=== PATIENT | female | born 1935 | race Caucasian/White ===

== ENCOUNTER 2018-12-25 14:05 | Emergency (ER) | payer MEDICARE ==
[~2018-12-25] VITALS: Ht 157.5 cm; Wt 48.1 kg
[~2018-12-25 14:05] MED LIST: ALPR0.5T6 PO; ASPI-482 PO; ESOM40CA PO; GABA-585 PO; HYDR-2155 PO; HYDR12.58 PO; METO-247 PO; METO100T7 PO; SIMV80TA17 PO; TRIM100T13 PO; VIT1TABL34 PO; [UNRECOGNIZED DRUG - OTHER] EACH EAR
[2018-12-25] MEDS ORDERED: IV NORMAL SALINE 1,000ML 1,000 ML IV ONE (14:30)
[2018-12-25 14:54] LABS: BASO # 0.1 x10^3/uL (0.0-0.2); BASO % 1 % (0-3); EOS # 0.1 x10^3/uL (0.0-0.7); EOS % 2 % (0-3); HEMATOCRIT 38.9 % (36.0-47.0); HEMOGLOBIN 12.7 g/dL (12.0-15.5); LYMPH # 2.7 x10^3/uL (1.0-4.8); LYMPH % 31 % (24-48); MEAN CORPUSCULAR HEMOGLOBIN 31 pg (25-35); MEAN CORPUSCULAR HGB CONC 33 g/dL (31-37); MEAN CORPUSCULAR VOLUME 93 fL (79-100); MONO # 0.7 x10^3/uL (0.0-1.1); MONO % 8 % (0-9); NEUT % 58 % (31-73); PLATELET COUNT 343 x10^3/uL (140-400); RED BLOOD COUNT 4.17 x10^6/uL (3.50-5.40); RED CELL DISTRIBUTION WIDTH 14.5 % (11.5-14.5); WHITE BLOOD COUNT 8.6 x10^3/uL (4.0-11.0)
[2018-12-25 15:18] LABS: ALBUMIN 3.4 g/dL (3.4-5.0); ALBUMIN/GLOBULIN RATIO 0.8 (1.0-1.7); CREATININE 1.4 mg/dL (0.6-1.0); GFR 35.8; POTASSIUM 5.1 mmol/L (3.5-5.1); TOTAL BILIRUBIN 0.2 mg/dL (0.2-1.0); TOTAL PROTEIN 7.6 g/dL (6.4-8.2)
[2018-12-25 15:42] LABS: BILIRUBIN,URINE NEG (NEG); CLARITY,URINE CLEAR; COLOR,URINE YELLOW; GLUCOSE,URINE NEG (NEG); NITRITE,URINE NEG (NEG); UROBILINOGEN,URINE 0.2 mg/dL (0.2 mg/dL)
[2018-12-25 15:43] LABS: BACTERIA,URINE 0 /HPF (0-FEW); SQUAMOUS EPITHELIAL CELL,UR MANY /LPF
[2018-12-25 15:52] VITALS: BP 127/68
--- NOTE | 2018-12-25 15:52 | RAD ---
Examination: CT ABDOMEN PELVIS WO CONTRAST History: Diarrhea, abdominal pain Comparison/Correlation: 08/24/2014 CT chest and abdomen with contrast Findings: Axial images of the abdomen and pelvis were obtained without contrast. Sagittal and coronal reformatted images were provided. Mitral annular calcifications present. Significant calcification of the left anterior descending coronary artery noted. Linear atelectasis or scarring along the lateral right lung base noted. Minimal loculated pericardial effusion is suggested about the right ventricle. Cholecystectomy noted. Unenhanced liver is unremarkable. Calcified granulomatous involving the spleen. Adrenal glands are unremarkable. Right extrarenal pelvis is evident. No radiopaque collecting system calculi or definite collecting system obstruction. Fluid is noted to distend the colon. No extraluminal gas. Fluid is also present within nondistended small bowel. Diverticulosis of the colon is notable. No inflammatory findings about the cecum. Urinary bladder is moderately distended. No enlarged abdominal or pelvic lymph nodes. Nonspecific left upper pelvic sidewall nonenlarged lymph nodes or other soft tissue density suggested but stable pulmonary correlation with previous CT exam. T11 kyphoplasty evident. Disc space narrowing from L2 to L4 is moderate with vacuum phenomenon. Significant calcific involvement of the abdominal aorta and iliac arteries noted. Levo convexity of the lower spine noted. Impression: Diverticulosis of the colon. Fluid within the colon which may correspond to reported diarrhea. No definite inflammatory findings. PQRS Compliance Statement: One or more of the following individualized dose reduction techniques were utilized for this examination: 1. Automated exposure control 2. Adjustment of the mA and/or kV according to patient size 3. Use of iterative reconstruction technique Electronically signed by: Vinayak Ayala MD (12/25/2018 3:49 PM) [id number]
--- NOTE | 2018-12-25 16:13 | PHYS DOC ---
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 The patient tells me she has had chronic diarrhea for couple months. She's had a lifelong history of diarrhea. Her physician was concerned that she appeared dehydrated and that her normal pain might be something more significant. Patient scrubbed the pain is an intermittent generalized cramping. It is mild in intensity. She has not had fever or chills. No recent medication changes. Review of Systems Review of Systems Constitutional: Denies fever or chills [] Eyes: Denies change in visual acuity, redness, or eye pain [] HENT: Denies nasal congestion or sore throat [] Respiratory: Denies cough or shortness of breath [] Cardiovascular: No additional information not addressed in HPI [] GI: Generalized abdominal pain, diarrhea [] : Denies dysuria or hematuria [] Musculoskeletal: Denies back pain or joint pain [] Integument: Denies rash or skin lesions [] Neurologic: Denies headache, focal weakness or sensory changes [] Endocrine: Denies polyuria or polydipsia [] All other systems were reviewed and found to be within normal limits, except as documented in this note. Current Medications Current Medications Current Medications Medications (Trade) Dose Ordered Sig/Dakota Start Time Stop Time Status Last Admin Dose Admin Sodium Chloride 1,000 ml @ 1,000 mls/hr 1X ONCE 12/25/18 14:30 12/25/18 15:29 DC 12/25/18 14:38 1,000 MLS/HR Allergies Allergies Allergies Coded Allergies Type Severity Reaction Last Updated Verified codeine Allergy Mild Nausea 06/07/14 Yes Uncoded Allergies Type Severity Reaction Last Updated Verified TAPE Allergy Intermediate 11/09/14 Physical Exam Physical Exam Constitutional: Well developed, thin, well nourished, no acute distress, non- toxic appearance. [] HENT: Normocephalic, atraumatic, bilateral external ears normal, oropharynx dry, no oral exudates, nose normal. [] Eyes: PERRLA, EOMI, conjunctiva normal, no discharge. [] Neck: Normal range of motion, no tenderness, supple, no stridor. [] Cardiovascular:Heart rate regular rhythm, no murmur [] Lungs & Thorax: Bilateral breath sounds clear to auscultation [] Abdomen: Bowel sounds normal, soft, no tenderness, no masses, no pulsatile masses. [] Skin: Warm, dry, no erythema, no rash. [] Back: No tenderness, no CVA tenderness. [] Extremities: No tenderness, no cyanosis, no clubbing, ROM intact, no edema. [] Neurologic: Alert and oriented X 3, normal motor function, normal sensory function, no focal deficits noted. [] Psychologic: Affect normal, judgement normal, mood normal. [] Current Patient Data Vital Signs Vital Signs Date Time Temp Pulse Resp B/P (MAP) Pulse Ox O2 Delivery O2 Flow Rate FiO2 12/25/18 15:52 8 20 127/68 (87) 98 Room Air 12/25/18 14:15 97.9 Lab Results Laboratory Tests Test 12/25/18 14:35 12/25/18 14:43 White Blood Count 8.6 x10^3/uL (4.0-11.0) Red Blood Count 4.17 x10^6/uL (3.50-5.40) Hemoglobin 12.7 g/dL (12.0-15.5) Hematocrit 38.9 % (36.0-47.0) Mean Corpuscular Volume 93 fL (79-100) Mean Corpuscular Hemoglobin 31 pg (25-35) Mean Corpuscular Hemoglobin Concent 33 g/dL (31-37) Red Cell Distribution Width 14.5 % (11.5-14.5) Platelet Count 343 x10^3/uL (140-400) Neutrophils (%) (Auto) 58 % (31-73) Lymphocytes (%) (Auto) 31 % (24-48) Monocytes (%) (Auto) 8 % (0-9) Eosinophils (%) (Auto) 2 % (0-3) Basophils (%) (Auto) 1 % (0-3) Neutrophils # (Auto) 5.0 x10^3uL (1.8-7.7) Lymphocytes # (Auto) 2.7 x10^3/uL (1.0-4.8) Monocytes # (Auto) 0.7 x10^3/uL (0.0-1.1) Eosinophils # (Auto) 0.1 x10^3/uL (0.0-0.7) Basophils # (Auto) 0.1 x10^3/uL (0.0-0.2) Sodium Level 135 mmol/L (136-145) L Potassium Level 5.1 mmol/L (3.5-5.1) Chloride Level 98 mmol/L (98-107) Carbon Dioxide Level 24 mmol/L (21-32) Anion Gap 13 (6-14) Blood Urea Nitrogen 36 mg/dL (7-20) H Creatinine 1.4 mg/dL (0.6-1.0) H Estimated GFR (Cockcroft-Gault) 35.8 BUN/Creatinine Ratio 26 (6-20) H Glucose Level 108 mg/dL (70-99) H Calcium Level 9.0 mg/dL (8.5-10.1) Total Bilirubin 0.2 mg/dL (0.2-1.0) Aspartate Amino Transferase (AST) 19 U/L (15-37) Alanine Aminotransferase (ALT) 12 U/L (14-59) L Alkaline Phosphatase 80 U/L (46-116) Total Protein 7.6 g/dL (6.4-8.2) Albumin 3.4 g/dL (3.4-5.0) Albumin/Globulin Ratio 0.8 (1.0-1.7) L Lipase 119 U/L (73-393) Urine Collection Type Unknown Urine Color Yellow Urine Clarity Clear Urine pH 5.0 Urine Specific [place] <=1.005 Urine Protein Neg (NEG-TRACE) Urine Glucose (UA) Neg mg/dL (NEG) Urine Ketones (Stick) Neg mg/dL (NEG) Urine Blood Small (NEG) Urine Nitrite Neg (NEG) Urine Bilirubin Neg (NEG) Urine Urobilinogen Dipstick 0.2 mg/dL (0.2 mg/dL) Urine Leukocyte Esterase Neg (NEG) Urine RBC 1-2 /HPF (0-2) Urine WBC 1-4 /HPF (0-4) Urine Squamous Epithelial Cells Many /LPF Urine Bacteria 0 /HPF (0-FEW) EKG EKG [] Radiology/Procedures Radiology/Procedures [] Course & Med Decision Making Course & Med Decision Making Pertinent Labs and Imaging studies reviewed. (See chart for details) The patient's labs were significant for slightly elevated creatinine of 1.4. Her CT abdomen and pelvis was negative for acute findings. This sounds like a chronic condition that has recently been worse. The patient is a bit dehydrated, but not severe. I advised that she follow-up with her physician to further discuss or diarrhea. She is stable for discharge at this time. [] Dragon Disclaimer Dragon Disclaimer This electronic medical record was generated, in whole or in part, using a voice recognition dictation system. Departure Departure: Impression: Primary Impression: Diarrhea Additional Impression: Abdominal pain Disposition: HOME, SELF-CARE Condition: STABLE Referrals: SVEN PÉREZ MD (PCP) Patient Instructions: Chronic Diarrhea Problem Qualifiers Primary Impression: Diarrhea Diarrhea type: unspecified type Qualified Codes: R19.7 - Diarrhea, unspecified Additional Impression: Abdominal pain Abdominal location: generalized Qualified Codes: R10.84 - Generalized abdominal pain ARTEM TY DO Dec 25, 2018 16:13
== END 2018-12-25 16:36 | disposition home or self-care (01) ==
LOC: ER 14:05
DX: K52.9 Noninfective gastroenteritis and colitis, unspecified (principal); R10.84 Generalized abdominal pain; I25.10 Atherosclerotic heart disease of native coronary artery without angina pectoris; F41.9 Anxiety disorder, unspecified; E78.00 Pure hypercholesterolemia, unspecified; I10 Essential (primary) hypertension; I25.2 Old myocardial infarction; Z87.440 Personal history of urinary (tract) infections; Z86.73 Personal history of transient ischemic attack (TIA), and cerebral infarction without residual deficits; K21.9 Gastro-esophageal reflux disease without esophagitis; Z90.49 Acquired absence of other specified parts of digestive tract; Z90.89 Acquired absence of other organs; Z90.710 Acquired absence of both cervix and uterus; Z88.5 Allergy status to narcotic agent
CPT/HCPCS: 36415; 74176; 80053; 81001; 83690; 85025; 96360; 99285-25; J7030

== ENCOUNTER → 2019-04-21 | Outpatient (CLI) | payer MEDICARE ==
--- NOTE | 2019-04-21 14:00 | RAD ---
Indication: Postmenopausal screening for osteoporosis. COMPARISON: None available. Bone Density: -BMD: (g/cm2) - AP Spine Total (L1-L4).......... 0.822. - Total right Hip................. 0.547. T-Score: - AP Spine Total (L1-L4)......... -3.0. - Total right Hip................. -3.3. Z-Score: - AP Spine Total (L1-L4).......... -0.5. - Total right Hip................. -0.7. World Health Organization criteria for BMD interpretation classify patients as Normal (T-score at or above -1.0), Osteopenic (T-score between -1.0 and -2.5), or Osteoporotic (T-score at or below -2.5). Impression: 1. AP Spine Total L1-L4--- osteoporosis. 2. Total right Hip--- osteoporosis. Electronically signed by: Brock Clark MD (04/21/2019 1:57 PM) [facility] [place]
== END | disposition home or self-care (01) ==
LOC: DXRAD 08:09
PROVIDERS: ATTEND Specialist
DX: Z13.820 Encounter for screening for osteoporosis (principal); M81.0 Age-related osteoporosis without current pathological fracture
CPT/HCPCS: 77080

== ENCOUNTER → 2019-10-23 | Outpatient (CLI) | payer MEDICARE ==
[~2019-10-23] MED LIST changes: +IOHEXOL 240 MG/ML 50ML VIAL. PO ONE; +IOHEXOL 300 MG/ML 75 ML VIAL. IV ONE
[2019-10-23 13:07] LABS: CREATININE 1.9 mg/dL (0.6-1.0); GFR 25.1
--- NOTE | 2019-10-23 15:30 | RAD ---
CT abdomen and pelvis with oral contrast only History: Abdominal pain, diarrhea Technique: Noncontrast CT imaging was performed of the abdomen and pelvis. Oral contrast was given. Multiplanar images are reviewed. Exposure: One or more of the following individualized dose reduction techniques were utilized for this examination: 1. Automated exposure control 2. Adjustment of the mA and/or kV according to patient size 3. Use of iterative reconstruction technique. Comparison: December 25, 2018 Findings: Small bowel is not significantly dilated. There are air-fluid levels in the colon. There is long segment at least moderate wall thickening of the mid descending colon to the rectum. Some adjacent hazy and strandy inflammatory type change most notable about the mid to distal descending colon. There is no free air or significant free fluid. Appendix is not confidently identified if still present. There is distention of the urinary bladder. There is again small to moderate pericardial effusion. There is prominent coronary calcification. Accurate evaluation of abdominal visceral organs is limited without intravenous contrast, no new obvious focal abnormality of the liver, spleen, or pancreas. There are splenic granulomas. There again has been cholecystectomy. There is no hydronephrosis or renal calculus. There is diffuse calcified plaque of the abdominal aorta, extending to the iliac arteries. There is advanced degenerative disc disease at L3-4 and to a lesser degree L4-5 and L2-3. There is multilevel lumbar facet degenerative change. There has been vertebroplasty T11. There is bone demineralization. There is [id number]-[id number] lumbar levoscoliosis. Impression: 1. There is long segment colonic wall thickening of the mid descending colon to the rectum, evidence of colitis, some adjacent inflammatory change. There is no free air or free fluid. There are air-fluid levels in the colon as may be seen with diarrheal state. 2. There is again pericardial effusion. 3. There is prominent coronary calcification. 4. There is distention of urinary bladder. Electronically signed by: Sumeet Bethea MD (10/23/2019 3:27 PM) [id number]
== END | disposition home or self-care (01) ==
LOC: CT 11:56
PROVIDERS: ATTEND Internal Medicine Gastroenterology
DX: K52.9 Noninfective gastroenteritis and colitis, unspecified (principal); N32.89 Other specified disorders of bladder; I70.0 Atherosclerosis of aorta; I25.10 Atherosclerotic heart disease of native coronary artery without angina pectoris; I31.3 Pericardial effusion (noninflammatory); M51.36 Other intervertebral disc degeneration, lumbar region; M81.0 Age-related osteoporosis without current pathological fracture; M47.816 Spondylosis without myelopathy or radiculopathy, lumbar region; M41.86 Other forms of scoliosis, lumbar region; Z90.49 Acquired absence of other specified parts of digestive tract
CPT/HCPCS: 36415; 74176; 82565; 84520; 87329; 87493; 87505

== ENCOUNTER → 2019-11-24 | Outpatient (CLI) | payer MEDICARE ==
[~2019-11-24] MED LIST changes: -IOHEXOL 240 MG/ML 50ML VIAL. PO ONE; -IOHEXOL 300 MG/ML 75 ML VIAL. IV ONE
== END ==
LOC: LAB 12:39
PROVIDERS: ATTEND Internal Medicine Gastroenterology
DX: R19.7 Diarrhea, unspecified (principal)
CPT/HCPCS: 36415; 87493

== ENCOUNTER 2020-06-29 12:23 | Emergency (ER) | payer MEDICARE ==
[~2020-06-29] VITALS: Ht 152.4 cm; Wt 47.6 kg
[2020-06-29 13:25] LABS: BASO # 0.1 x10^3/uL (0.0-0.2); BASO % 1 % (0-3); EOS # 0.1 x10^3/uL (0.0-0.7); EOS % 2 % (0-3); HEMATOCRIT 36.9 % (36.0-47.0); LYMPH # 2.3 x10^3/uL (1.0-4.8); LYMPH % 37 % (24-48); MEAN CORPUSCULAR HEMOGLOBIN 30 pg (25-35); MEAN CORPUSCULAR HGB CONC 33 g/dL (31-37); MEAN CORPUSCULAR VOLUME 93 fL (79-100); MONO # 0.5 x10^3/uL (0.0-1.1); MONO % 9 % (0-9); NEUT # 3.2 x10^3uL (1.8-7.7); NEUT % 52 % (31-73); PLATELET COUNT 212 x10^3/uL (140-400); RED BLOOD COUNT 3.99 x10^6/uL (3.50-5.40); RED CELL DISTRIBUTION WIDTH 14.5 % (11.5-14.5); WHITE BLOOD COUNT 6.2 x10^3/uL (4.0-11.0)
[2020-06-29 13:38] LABS: CALCIUM 8.7 mg/dL (8.5-10.1); CREATININE 1.5 mg/dL (0.6-1.0); POTASSIUM 3.7 mmol/L (3.5-5.1)
[2020-06-29 13:44] LABS: ALBUMIN 3.4 g/dL (3.4-5.0); TOTAL BILIRUBIN 0.4 mg/dL (0.2-1.0); TOTAL PROTEIN 6.8 g/dL (6.4-8.2)
[2020-06-29] MEDS ORDERED: IOHEXOL 300 MG/ML 75 ML VIAL. IV ONE (13:45)
--- NOTE | 2020-06-29 14:18 | RAD ---
STUDY: CT head and cervical spine without contrast INDICATION: Fall. COMPARISON: 01/23/2016 TECHNIQUE: Axial CT imaging through the head and cervical spine without the use of intravenous contra st. Sagittal and coronal reformats were obtained. One or more of the following individualized dose reduction techniques were utilized for this examinat ion: 1. Automated exposure control 2. Adjustment of the mA and/or kV according to patient size 3. Use of iterative reconstruction technique. FINDINGS: CT head: No acute intracranial hemorrhage. No localized mass effect or midline shift. Ex vacuo ventricular pro minence in the setting of parenchymal volume loss. No CT evidence for an acute cortical infarction. Intracranial calcific atherosclerosis and white matter findings most frequently on account of chronic microvascular ischemic change. Temporomandibular joint arthrosis. Unchanged slight rightward deviation of the nasal bone complex and leftward nasal septal deviation. No depressed calvarial fracture. No hemorrhage within the paranasal sinuses. CT cervical spine: No acute fracture or traumatic malalignment. Osteopenia. Offset across the right C1-C2 lateral mass a rticulation is slightly more pronounced from 2016 but favored combination of degenerative and positio nal. Multilevel spondylosis. There is again mild retrolisthesis of C4 on C5. No evidence for severe centra l canal narrowing. Multilevel osseous neural foraminal encroachment predominantly mild and moderate i n severity and collectively greatest at C5-C6. No soft tissue sequela of trauma. Multifocal calcific atherosclerosis. No apical pneumothorax. IMPRESSION: CT head: 1. No acute intracranial abnormality by CT. 2. Chronic/senescent observations detailed in the body the report. CT cervical spine: 1. No acute fracture or traumatic malalignment. 2. Multilevel spondylosis without evidence for severe central canal narrowing. Osteopenia. Electronically signed by: ROD GHOSH MD (06/29/2020 2:16 PM) [id number]
--- NOTE | 2020-06-29 14:18 | EKG ---
[address] [address] Test Date: 2020-06-29 Test Time: 13:04:13 Pat Name: KASSANDRA SARMIENTO Department: Room: Gender: F Neuropsychologist: MAMADOU : 1935 Requested By: YAHAIRA DUNNE Order Number: [id number] Reading MD: Measurements Intervals [place] Rate: 77 P: -90 TN: 164 QRS: -26 QRSD: 158 T: 115 QT: 428 QTc: 486 Interpretive Statements SUPRAVENTRICULAR RHYTHM LEFTWARD AXIS LEFT BUNDLE BRANCH BLOCK ABNORMAL ECG RI6.02 No previous ECG available for comparison
[2020-06-29 14:27] LABS: BILIRUBIN,URINE NEG (NEG); CLARITY,URINE CLEAR; COLOR,URINE YELLOW; GLUCOSE,URINE NEG (NEG); NITRITE,URINE NEG (NEG); UROBILINOGEN,URINE 0.2 mg/dL (0.2 mg/dL)
[2020-06-29 14:34] LABS: BACTERIA,URINE FEW /HPF (0-FEW); RBC,URINE 0 /HPF (0-2)
[2020-06-29 14:35] LABS: SQUAMOUS EPITHELIAL CELL,UR OCC /LPF
--- NOTE | 2020-06-29 14:35 | RAD ---
Study: CT chest, abdomen and pelvis with contrast INDICATION: Fall. Left rib/chest/abdominal pain. COMPARISON: CT abdomen/pelvis 10/23/2019; CT chest 08/24/2014 TECHNIQUE: Helical CT imaging performed of the chest, abdomen and pelvis after the intravenous admini stration of 60 cc Omnipaque 300. Coronal and sagittal reformats were obtained. One or more of the following individualized dose reduction techniques were utilized for this examinat ion: 1. Automated exposure control 2. Adjustment of the mA and/or kV according to patient size 3. Use of iterative reconstruction technique. FINDINGS: CT Chest: No evidence for traumatic injury to the thoracic aorta or visualized great vessels. Multifocal athero matous plaque to include trivessel coronary artery involvement. Estimated mild stenosis at the right subclavian artery origin. Small/moderate pericardial fluid measuring simple density and unchanged fro m the 10/23/2019 comparison. No retrosternal hematoma. No enlarging mediastinal or hilar lymph nodes. No pneumothorax or pleural effusion. A few cysts and mild scarring. No confluent infiltrate or suspic ious pulmonary nodule. No large body wall hematoma. No displaced rib fracture on either side. No acute fracture at the shoul autumn girdles. Intact sternum. Augmented T11 compression deformity with accentuated kyphosis at this le amarilis. No suspicious vertebral body height loss to suggest a new compression fracture. Osteopenia. CT Abdomen/Pelvis: No hepatic, splenic or renal laceration. Diffusely dilated intrahepatic and extrahepatic biliary tree in the setting of previous cholecystectomy. No obstructing process seen at the pancreatic head. A co mponent of biliary dilatation was also present on the comparison but appears to have progressed. Uppe r limits of normal pancreatic duct at the head/uncinate process but nondilated throughout the body an d tail. Unchanged adrenal gland morphology. Renal cortical thinning and a few small cysts. Mild promi nence of the proximal collecting system without overt hydronephrosis. No hydroureter. Moderate disten tion of the urinary bladder. Surgically absent uterus. No adnexal mass. Mild rectal distention with well-formed stool. Colonic diverticulosis. Mild wall thickening of the co doron at a few locations is nonspecific and may relate to underdistention. Small amount of incompletely formed stool within the proximal colon. The appendix is not well-visualized. No pathologic dilatatio n of small bowel with transitioning to collapsed to suggest obstruction. No discrete abnormality of t he stomach. Extensive calcific atherosclerosis. Tortuosity of the aorta without aneurysmal dilatation or dissecti on. No findings to suggest major vascular injury. Patent major veins. No concerning lymph nodes. No f ree fluid or pneumoperitoneum. No large body wall hematoma. No acute fracture seen throughout the pelvis. Interval augmentation of a n L1 compression fracture. No newly appreciated lumbar compression deformity. Osteopenia and degenera tive changes. IMPRESSION: CT Chest: 1. No sequela of acute trauma seen throughout the chest. No displaced rib fracture on the left in th e setting of patient pain reportedly in this region. 2. Several chronic findings as outlined in the body the report. CT Abdomen/Pelvis: 1. No acute abnormality related to trauma seen below the diaphragm. 2. Generalized dilatation of the biliary tree favored a combination of senescence and reservoir effe ct given absence of the gallbladder. No obstructing process is identified but consider correlation wi th bilirubin levels. 3. Mild constipation with mild rectal distention with well-formed stool. 4. Moderate distention of the urinary bladder likely voluntary but correlate for involuntary retenti on. 5. Interval augmentation of an L1 compression fracture. No newly seen fracture noting osteopenia. Electronically signed by: ROD GHOSH MD (06/29/2020 2:33 PM) [id number]
[2020-06-29] MEDS ORDERED: IBUP600T16 PO (15:33)
--- NOTE | 2020-06-29 15:33 | PHYS DOC ---
Past History Past Medical History: Anxiety, CAD, GERD, High Cholesterol, Hypertension, PA, Stroke, UTI, Other Additional Past Medical Histor: CHRONIC DIARRHEA (YAHAIRA DUNNE APRN) Past Surgical History: Appendectomy, Cholecystectomy, Hysterectomy (YAHAIRA DUNNE APRN) Smoking: Non-smoker Alcohol Use: Rarely Drug Use: None (YAHAIRA DUNNE APRN) Adult General Chief Complaint Chief Complaint: MECHANICAL FALL HPI HPI Patient is a 84-year-old female presents to the emergency department complaining of left anterior rib pain after a slip and fall yesterday at approximately 7 PM. Patient states that she was getting ready for bed when she turned to turn her light off she lost her footing and slid down the wall striking her left ribs against a book lying on the floor. Patient denies hitting her head or her neck. Patient denies any head pain neck pain back pain or hip pain. Patient denies any pains of her extremities. Patient states the only place she hurts is in the left forward lower side of her ribs where she hit the book. Patient states she did not take anything for her pain. Patient states she thought she could wait until July 05 for her scheduled doctor's appointment to let Dr. Luciano know but thought it would be better if she had it evaluated in the emergency department today. Patient denies any shortness of breath, denies chest or nasal congestion. Patient reports her pain a 9/10 on a 1-10 pain scale. Patient denies any nausea vomiting diarrhea or abdominal pains. Patient denies any other physical complaints or physical concerns. Patient reports no allergies to medications, states she had one of her L-spine bones repaired by cement just recently. (YAHAIRA DUNNE APRN) Review of Systems Review of Systems 14 body systems of review of systems have been reviewed. See HPI for pertinent positives and negative responses, otherwise all other systems are negative, nonpertinent or noncontributory. (YAHAIRA DUNNE APRN) Current Medications Current Medications Patient reports taking 20 mg omeprazole every morning, 100 mg metoprolol ER nightly, 81 mg aspirin nightly, 0.5 mg as needed for anxiety, a PreserVision eye vitamin twice a day, spironolactone 25 mg 1/2 tablet every morning. Current Medications Medications (Trade) Dose Ordered Sig/Dakota Start Time Stop Time Status Last Admin Dose Admin Fentanyl Citrate (Fentanyl 2ml Vial) 50 mcg 1X ONCE 06/29/20 14:30 06/29/20 14:31 DC 06/29/20 14:35 50 MCG Iohexol (Omnipaque 300 Mg/ml) 75 ml 1X ONCE 06/29/20 13:45 06/29/20 13:47 DC 06/29/20 14:03 75 ML (YAHAIRA DUNNE APRN) Allergies Allergies Allergies Uncoded Allergies Type Severity Reaction Last Updated Verified TAPE Allergy Intermediate 11/09/14 (YAHAIRA DUNNE APRN) Physical Exam Physical Exam Constitutional: Well developed, well nourished, no acute distress, non-toxic appearance. 84-year-old female in no apparent distress. HENT: Normocephalic, atraumatic, bilateral external ears normal, oropharynx moist, no oral exudates, nose normal. Oropharynx moist, pink, no malocclusion appreciated, no drooling, no trismus, no raccoon eyes appreciated, no battles sign appreciated, no drainage from external auditory canals, bilateral TMs within normal limits. Eyes: PERRLA, EOMI, conjunctiva normal, no discharge. Satisfactory 6 cardinal eye movements, pupils 4 mm. Neck: Normal range of motion, no tenderness, supple, no stridor. No nuchal rigidity, no C-spine tenderness, no meningismus signs. Cardiovascular:Heart rate regular rhythm, no murmur, heart sounds S1-S2 to auscultation. Lungs & Thorax: Bilateral breath sounds clear to auscultation no adventitious lung sounds appreciated, pain to palpation left lower anterior thorax. No crepitation or bruising appreciated to the anterior thorax. Abdomen: Bowel sounds normal, soft, no tenderness, no masses, no pulsatile masses. No areas of ecchymosis appreciated to the abdomen. Skin: Warm, dry, no erythema, no rash. Skin intact. Back: No tenderness, no CVA tenderness. Extremities: No tenderness, no cyanosis, no clubbing, ROM intact, no edema. Pelvis stable. Distal cap refill less than 2 seconds, +2/4 pulses. Neurologic: Alert and oriented X 2, patient oriented to place and self, stated it was April 2020, daughter at bedside reported this is baseline for her to confuse April and June, normal motor function, normal sensory function, no focal deficits noted. Psychologic: Affect normal, judgement normal, mood normal. (YAHAIRA DUNNE APRN) Current Patient Data Vital Signs Vital Signs Date Time Temp Pulse Resp B/P (MAP) Pulse Ox O2 Delivery O2 Flow Rate FiO2 06/29/20 14:37 66 26 136/65 (88) 92 Room Air 06/29/20 12:25 98.1 Lab Results Laboratory Tests Test 06/29/20 13:12 06/29/20 14:20 White Blood Count 6.2 x10^3/uL (4.0-11.0) Red Blood Count 3.99 x10^6/uL (3.50-5.40) Hemoglobin 12.0 g/dL (12.0-15.5) Hematocrit 36.9 % (36.0-47.0) Mean Corpuscular Volume 93 fL (79-100) Mean Corpuscular Hemoglobin 30 pg (25-35) Mean Corpuscular Hemoglobin Concent 33 g/dL (31-37) Red Cell Distribution Width 14.5 % (11.5-14.5) Platelet Count 212 x10^3/uL (140-400) Neutrophils (%) (Auto) 52 % (31-73) Lymphocytes (%) (Auto) 37 % (24-48) Monocytes (%) (Auto) 9 % (0-9) Eosinophils (%) (Auto) 2 % (0-3) Basophils (%) (Auto) 1 % (0-3) Neutrophils # (Auto) 3.2 x10^3uL (1.8-7.7) Lymphocytes # (Auto) 2.3 x10^3/uL (1.0-4.8) Monocytes # (Auto) 0.5 x10^3/uL (0.0-1.1) Eosinophils # (Auto) 0.1 x10^3/uL (0.0-0.7) Basophils # (Auto) 0.1 x10^3/uL (0.0-0.2) Sodium Level 141 mmol/L (136-145) Potassium Level 3.7 mmol/L (3.5-5.1) Chloride Level 105 mmol/L (98-107) Carbon Dioxide Level 28 mmol/L (21-32) Anion Gap 8 (6-14) Blood Urea Nitrogen 39 mg/dL (7-20) H Creatinine 1.5 mg/dL (0.6-1.0) H Estimated GFR (Cockcroft-Gault) 33.0 BUN/Creatinine Ratio 26 (6-20) H Glucose Level 110 mg/dL (70-99) H Calcium Level 8.7 mg/dL (8.5-10.1) Total Bilirubin 0.4 mg/dL (0.2-1.0) Aspartate Amino Transferase (AST) 24 U/L (15-37) Alanine Aminotransferase (ALT) 22 U/L (14-59) Alkaline Phosphatase 103 U/L (46-116) Troponin I Quantitative < 0.017 ng/mL (0-0.055) DF-Jzv-M-Type Natriuretic Peptide 1248 pg/mL (0-449) H Total Protein 6.8 g/dL (6.4-8.2) Albumin 3.4 g/dL (3.4-5.0) Albumin/Globulin Ratio 1.0 (1.0-1.7) Lipase 150 U/L (73-393) Urine Collection Type Unknown Urine Color Yellow Urine Clarity Clear Urine pH 5.5 Urine Specific [place] 1.015 Urine Protein Neg (NEG-TRACE) Urine Glucose (UA) Neg mg/dL (NEG) Urine Ketones (Stick) Neg mg/dL (NEG) Urine Blood Neg (NEG) Urine Nitrite Neg (NEG) Urine Bilirubin Neg (NEG) Urine Urobilinogen Dipstick 0.2 mg/dL (0.2 mg/dL) Urine Leukocyte Esterase Trace (NEG) Urine RBC 0 /HPF (0-2) Urine WBC 5-10 /HPF (0-4) Urine Squamous Epithelial Cells Occ /LPF Urine Bacteria Few /HPF (0-FEW) (YAHAIRA DUNNE APRN) EKG EKG EKG performed at 1304 by house respiratory therapy staff shows accelerated junctional rhythm with left bundle branch block heart rate 77 bpm, AL interval 0.164, QTc interval 0.486, no acute STEMI, no ACS, no acute ischemia appreciated per scar boluses criteria, EKG interpreted by ED attending physician Dr. Salinas. (YAHAIRA DUNNE APRN) Radiology/Procedures Radiology/Procedures PATIENT: KASSANDRA SARMIENTO ACCOUNT: [id number] : 1935 LOCATION: ER AGE: 84 SEX: F EXAM STATUS: REG ER ORD. PHYSICIAN: YAHAIRA DUNNE APRN REASON: fall PROCEDURE: CT HEAD AND CERVICAL SPINE WO STUDY: CT head and cervical spine without contrast INDICATION: Fall. COMPARISON: 01/23/2016 TECHNIQUE: Axial CT imaging through the head and cervical spine without the use of intravenous contrast. Sagittal and coronal reformats were obtained. One or more of the following individualized dose reduction techniques were utilized for this examination: 1. Automated exposure control 2. Adjustment of the mA and/or kV according to patient size 3. Use of iterative reconstruction technique. FINDINGS: CT head: No acute intracranial hemorrhage. No localized mass effect or midline shift. Ex vacuo ventricular prominence in the setting of parenchymal volume loss. No CT evidence for an acute cortical infarction. Intracranial calcific atherosclerosis and white matter findings most frequently on account of chronic microvascular ischemic change. Temporomandibular joint arthrosis. Unchanged slight rightward deviation of the nasal bone complex and leftward nasal septal deviation. No depressed calvarial fracture. No hemorrhage within the paranasal sinuses. CT cervical spine: No acute fracture or traumatic malalignment. Osteopenia. Offset across the right C1-C2 lateral mass articulation is slightly more pronounced from 2016 but favored combination of degenerative and positional. Multilevel spondylosis. There is again mild retrolisthesis of C4 on C5. No evidence for severe central canal narrowing. Multilevel osseous neural foraminal encroachment predominantly mild and moderate in severity and collectively greatest at C5-C6. No soft tissue sequela of trauma. Multifocal calcific atherosclerosis. No apical pneumothorax. IMPRESSION: CT head: 1. No acute intracranial abnormality by CT. 2. Chronic/senescent observations detailed in the body the report. CT cervical spine: 1. No acute fracture or traumatic malalignment. 2. Multilevel spondylosis without evidence for severe central canal narrowing. Osteopenia. Electronically signed by: ROD GHOSH MD (06/29/2020 2:16 PM) [id number] DICTATED AND SIGNED BY: ROD GHOSH MD DATE: 06/29/20 1409 CC: YAHAIRA DUNNE APRN; ANTHONY LUCIANO ~MTH0 0 PATIENT: KASSANDRA SARMIENTO ACCOUNT: [id number] : 1935 LOCATION: ER AGE: 84 SEX: F EXAM STATUS: REG ER ORD. PHYSICIAN: YAHAIRA DUNNE APRN REASON: fall, left rib/chest/abd pain - 60mls omni 300 PROCEDURE: CT CHEST ABD PELVIS W/CONTRAST Study: CT chest, abdomen and pelvis with contrast INDICATION: Fall. Left rib/chest/abdominal pain. COMPARISON: CT abdomen/pelvis 10/23/2019; CT chest 08/24/2014 TECHNIQUE: Helical CT imaging performed of the chest, abdomen and pelvis after the intravenous administration of 60 cc Omnipaque 300. Coronal and sagittal reformats were obtained. One or more of the following individualized dose reduction techniques were utilized for this examination: 1. Automated exposure control 2. Adjustment of the mA and/or kV according to patient size 3. Use of iterative reconstruction technique. FINDINGS: CT Chest: No evidence for traumatic injury to the thoracic aorta or visualized great vessels. Multifocal atheromatous plaque to include trivessel coronary artery involvement. Estimated mild stenosis at the right subclavian artery origin. Small/moderate pericardial fluid measuring simple density and unchanged from the 10/23/2019 comparison. No retrosternal hematoma. No enlarging mediastinal or hilar lymph nodes. No pneumothorax or pleural effusion. A few cysts and mild scarring. No confluent infiltrate or suspicious pulmonary nodule. No large body wall hematoma. No displaced rib fracture on either side. No acute fracture at the shoulder girdles. Intact sternum. Augmented T11 compression deformity with accentuated kyphosis at this level. No suspicious vertebral body height loss to suggest a new compression fracture. Osteopenia. CT Abdomen/Pelvis: No hepatic, splenic or renal laceration. Diffusely dilated intrahepatic and extrahepatic biliary tree in the setting of previous cholecystectomy. No obstructing process seen at the pancreatic head. A component of biliary dilatation was also present on the comparison but appears to have progressed. Upper limits of normal pancreatic duct at the head/uncinate process but nondilated throughout the body and tail. Unchanged adrenal gland morphology. Renal cortical thinning and a few small cysts. Mild prominence of the proximal collecting system without overt hydronephrosis. No hydroureter. Moderate distention of the urinary bladder. Surgically absent uterus. No adnexal mass. Mild rectal distention with well-formed stool. Colonic diverticulosis. Mild wall thickening of the colon at a few locations is nonspecific and may relate to underdistention. Small amount of incompletely formed stool within the proximal colon. The appendix is not well-visualized. No pathologic dilatation of small bowel with transitioning to collapsed to suggest obstruction. No discrete abnormality of the stomach. Extensive calcific atherosclerosis. Tortuosity of the aorta without aneurysmal dilatation or dissection. No findings to suggest major vascular injury. Patent major veins. No concerning lymph nodes. No free fluid or pneumoperitoneum. No large body wall hematoma. No acute fracture seen throughout the pelvis. Interval augmentation of an L1 compression fracture. No newly appreciated lumbar compression deformity. Osteopenia and degenerative changes. IMPRESSION: CT Chest: 1. No sequela of acute trauma seen throughout the chest. No displaced rib fracture on the left in the setting of patient pain reportedly in this region. 2. Several chronic findings as outlined in the body the report. CT Abdomen/Pelvis: 1. No acute abnormality related to trauma seen below the diaphragm. 2. Generalized dilatation of the biliary tree favored a combination of senesce nce and reservoir effect given absence of the gallbladder. No obstructing process is identified but consider correlation with bilirubin levels. 3. Mild constipation with mild rectal distention with well-formed stool. 4. Moderate distention of the urinary bladder likely voluntary but correlate for involuntary retention. 5. Interval augmentation of an L1 compression fracture. No newly seen fracture noting osteopenia. Electronically signed by: ROD GHOSH MD (06/29/2020 2:33 PM) [id number] DICTATED AND SIGNED BY: ROD GHOSH MD DATE: 06/29/20 1416 CC: YAHAIRA DUNNE APRN; ANTHONY LUCIANO ~MTH0 0 (YAHAIRA DUNNE APRN) Heart Score C/O Chest Pain: Yes HEART Score for Chest Pain: HEART Score for Chest Pain Response (Comments) Value History Slighlty/Non-Suspicious 0 ECG Normal 0 Age > 65 2 Risk Factors No Risk Factors 0 Troponin < Normal Limit 0 Total 2 Risk Factors: Risk Factors: DM, Current or recent (<one month) smoker, HTN, HLP, family history of CAD, obesity. Risk Scores: Risk Factors: DM, Current or recent (<one month) smoker, HTN, HLP, family history of CAD, obesity. (YAHAIRA DUNNE APRN) Course & Med Decision Making Course & Med Decision Making Pertinent Labs and Imaging studies reviewed. (See chart for details) 84-year-old female, vital signs reviewed, presents emergency department chief complaint of a slip and fall striking her left lower ribs against a book that was laying on the floor yesterday at approximately 1900. Physical examination concerning for chest wall contusion left lower ribs, will order CT head C-spine chest abdomen pelvis related to differences and fall history between patient, and both daughters. Patient does have a history of forgetfulness and confusion. A cardiopulmonary work-up was initiated in the ED. Patient was given 50 mcg fentanyl IV for a 9/10 pain on a 1-10 pain scale. Upon reevaluation of the patient, patient states her pain is down to a 7. 50 mc g fentanyl IV ordered for her second dose. Upon reevaluation of the patient, patient states her pain is now a 5/10. Discussed CT imaging findings with patient, diagnosis of chest wall contusion. Will start on 600 mg Motrin as needed 3 times daily, strict follow-up with her primary care physician Dr. Luciano tomorrow for ongoing pain management. Return to ER precautions and concerns. Patient's daughter was at bedside during verbal instructions. Patient's daughter states that she and her sister will be staying with her mom and dad over the next few days to make sure she is okay. Patient had no further questions or concerns and was discharged home without incident. (YAHAIRA DUNNE APRN) Course & Med Decision Making Did not see or evaluate patient. Agree with WINE MANAGER's work-up and disposition per note. (WALKER SALINAS MD) Dragon Disclaimer Dragon Disclaimer This electronic medical record was generated, in whole or in part, using a voice recognition dictation system. (YAHAIRA DUNNE APRN) Departure Departure: Impression: Primary Impression: Fall against object Additional Impression: Contusion of left chest wall Disposition: HOME / SELF CARE / HOMELESS Condition: GOOD Referrals: ANTHONY LUCIANO (PCP) Patient Instructions: Chest Contusion Additional Instructions: You are seen today in the emergency department for a fall in which you struck an object on the left side of your chest causing pain. We have done an extensive study of your heart lungs head neck and back and pelvis, there were no concerning findings to suggest broken bones, your EKG was unremarkable, your lab work did not show any concerning findings that would require a specialist intervention or admission to the hospital. As we discussed, you have bruised your left lower ribs area and chest wall. You may use ice packs 30 minutes on 30 minutes off while awake to prevent swelling and bruising. I am prescribing you 600 mg ibuprofen to take up to 3 times a day as needed for pain. As we discussed please call today for an appointment to see Dr. Luciano either tomorrow or Saturday for reevaluation of your pain and ongoing pain management as the pain from a chest contusion may take some time to heal and it would be beneficial if Dr. Luciano were managed your pain control closely as you are also taking tramadol from your spine doctor. Please let Dr. Luciano know that you take tramadol as well. Please return to the emergency department for worsening symptoms or other concerns. EMERGENCY DEPARTMENT GENERAL DISCHARGE INSTRUCTIONS Thank you for coming to [facility] (ED) today and trusting us with you care. We trust that you had a positivie experience in our Emergency Department. If you wish to speak to the department management, you may call the director at [phone]. YOUR FOLLOW UP INSTRUCTIONS ARE FOLLOWS: 1. Do you have a private Doctor? If you do not have a private doctor, please ask for a resource list of physicians or clinics that may be able to assist you with follow up care. 2. The Emergency Physician has interpreted your x-rays. The X-Ray specialist will also review them. If there is a change in the findings, you will be notified in 48 hours when at all possible. 3. A lab test or culture has been done, your results will be reviewed and you will be notified if you need a change in treatment. ADDITIONAL INSTRUCTIONS AND INFORMATION: 1. Your care today has been supervised by a physician who is specially trained in emergency care. Many problems require more than one evaluation for a complete diagnosis and treatment. We recommend that you schedule your follow up appointment as recommended to ensure complete treatment of you illness or injury. If you are unable to obtain follow up care and continue to have a problem, or if your condition worsens, we recommend that you return to the ED. 2. We are not able to safely determine your condition over the phone nor are we able to give sound medical advice over the phone. For these safety reasons, if you call for medical advice we will ask you to come to the ED for further evaluation. 3. If you have any questions regarding these discharge instructions please call the ED at [phone]. SAFETY INFORMATION: In the interest of safety, wellness, and injury prevention; we encourage you to wear your sealbelt, if you smoke; quite smoking, and we encourage family to use a protective helmet for bicycling and other sporting events that present an increased risk for head injury. IF YOUR SYMPTOMS WORSEN OR NEW SYMPTOMS DEVELOP, OR YOU HAVE CONCERNS ABOUT YOUR CONDITION; OR IF YOUR CONDITION WORSENS WHILE YOU ARE WAITING FOR YOUR FOLLOW UP A PPOINTMENT; EITHER CONTACT YOUR PRIMARY CARE DOCTOR, THE PHYSICIAN WHOSE NAME AND NUMBER YOU WERE GIVEN, OR RETURN TO THE ED IMMEDIATELY. Scripts Ibuprofen (IBUPROFEN) 600 Mg Tablet 600 MG PO TID PRN PRN for PAIN, #20 TAB 0 Refills Prov: YAHAIRA DUNNE APRN 06/29/20 Problem Qualifiers Additional Impression: Contusion of left chest wall Encounter type: initial encounter Qualified Codes: S20.212A - Contusion of left front wall of thorax, initial encounter YAHAIRA DUNNE APRN June 29, 2020 15:33 WALKER SALINAS MD June 29, 2020 16:21
[2020-06-29 15:36] VITALS: BP 120/66
== END 2020-06-29 15:36 | disposition home or self-care (01) ==
LOC: ER 12:23
DX: S20.212A Contusion of left front wall of thorax, initial encounter (principal); K21.9 Gastro-esophageal reflux disease without esophagitis; I10 Essential (primary) hypertension; I25.2 Old myocardial infarction; Z90.49 Acquired absence of other specified parts of digestive tract; Z90.710 Acquired absence of both cervix and uterus; W01.0XXA Fall on same level from slipping, tripping and stumbling without subsequent striking against object, initial encounter; Y93.89 Activity, other specified; Y92.89 Other specified places as the place of occurrence of the external cause; Y99.8 Other external cause status
CPT/HCPCS: 36415; 70450; 71260; 72125; 74177; 80053; 81001; 83690; 83880; 84484; 85025; 87086; 93005; 96374; 96376; 99285; J3010; Q9967

== ENCOUNTER → 2021-05-09 | Outpatient (CLI) | payer MEDICARE ==
[~2021-05-09] MED LIST changes: +IBUP600T16 PO
--- NOTE | 2021-05-09 15:15 | RAD ---
INDICATION: Screening for osteopenia/osteoporosis. Reason: POST MENOPAUSAL / Spl. Instructions: / H istory: COMPARISON: April 2019 TECHNIQUE: Bone densitometry was performed through the lumbar spine and proximal femur. IMPRESSION: Lumbar Spine: BMD: 0.76 T-Score: -3.5 Range: Osteoporotic. Decreased by 7 percent from prior. Scoliotic curvature the spine Proximal Femur: BMD: 0.53 T-Score: -3.5 Range: Osteoporotic. Decreased by 3 percent from prior. World Health Organization Criteria for Bone Density: T-Score: > -1.0: Normal Range < -1.0 to -2.5: Osteopenic Range < -2.5: Osteoporotic Range Electronically signed by: Brock Estrada MD (05/09/2021 3:13 PM) [id number]
== END ==
LOC: DXRAD 12:00
PROVIDERS: ATTEND Family Medicine
DX: M81.8 Other osteoporosis without current pathological fracture (principal); Z78.0 Asymptomatic menopausal state
CPT/HCPCS: 77080